=== PATIENT | female | born 1945 | race Caucasian/White ===

== ENCOUNTER 2016-09-22 01:30 | Emergency (ER) | payer OTHER, BC ==
--- NOTE | 2016-09-22 01:38 | PDOC ---
History of Present Illness - General Chief Complaint: Lightheaded Stated Complaint: VERTIGO Time Seen by Provider: 09/22/16 01:37 History Source: Patient Exam Limitations: No Limitations - History of Present Illness Initial Comments: 09/22/16 01:45 This is a 70-year-old female who comes in with her friend for evaluation of vertigo type symptoms. Patient said that begin approximately 4 hours ago. Patient said when she moves her head especially when she looks down she gets a spinning sensation. Patient has at her baseline some mild tinnitus but otherwise not a denies any additional or new tinnitus. Patient has some mild associated nausea with the vertigo but has not vomited. Patient denies any headache, neck stiffness fever or chills or any other complaints. PAST MEDICAL HISTORY: no significant history PAST SURGICAL HISTORY: no significant history FAMILY HISTORY: no pertinant history SOCIAL HISTORY: Pt lives with family and is employed. MEDICATIONS: reviewed ALLERGIES: As per nursing notes Review of Systems General: No fevers or chills, no weakness, no weight loss HEENT: No change in vision. No sore throat,. No ear pain CardioVascular: No chest pain or shortness of breath Respiratory:No cough, or wheezing. Gastrointestinal: no nausea, vomitting, diarrhea or constipation, No rectal bleeding Genitourinary: No dysuria, hematuria, or frequency Musculoskeletal: No joint or muscle pain or swelling Neurologic: No headache, vertigo, dizziness or loss of consciousness Psychiatric: nor depression Skin: No rashes or easy bruising Endocrine: no increased thirst or abnormal weight change Allergic: no skin or latex allergy All other systems reviewed and normal Exam: General: Well-nourished well-developed individual, no acute distress HEENT: Throat: Normal, tonsils normal, no erythema or exudate Neck: Supple, no meningeal signs, no lymphadenopathy Eyes::Pupils equal reactive and round, extraocular motion intact, there is no nystagmus Chest: Nontender to palpation Cardiac: S1-S2 normal, regular rate and rhythm, no murmurs rubs or gallops Respiratory: Lungs clear to auscultation bilateral Abdomen: Soft, nondistended, normal bowel sounds, nontender to palpation diffusely Extremities: Warm, dry, no cyanosis, clubbing, or edema Skin: No rashes Neuro: Alert and oriented x3, nonfocal exam, grossly intact, normal gait Psych: Normal mood and affect 09/22/16 02:48 Assessment and plan: This is a 62-year-old female who comes in complaining of vertigo type symptoms. Patient given meclizine and Zofran with improvement of her symptoms. Patient had a CAT scan that was negative for any acute pathology. Patient discharged home with prescription for meclizine and will follow-up with her primary care on Friday. Past History - Past Medical History Allergies/Adverse Reactions: Allergies Allergy/AdvReac Type Severity Reaction Status Date / Time Penicillins Allergy Intermediate Swelling Verified 11/11/11 14:34 Home Medications: Ambulatory Orders Meclizine HCl [Antivert -] 25 mg PO TID #21 tablet 09/22/16 Metronidazole [Metrogel] 55 gm TP DAILY 09/22/16 Anemia: No Asthma: No Cancer: Yes Cardiac Disorders: No CVA: No COPD: No CHF: No Dementia: No Diabetes: No GI Disorders: No Disorders: No HTN: No Hypercholesterolemia: No Liver Disease: No Seizures: No Thyroid Disease: No - Surgical History Abdominal Surgery: No Appendectomy: No Cardiac Surgery: No Cholecystectomy: No Lung Surgery: No Neurologic Surgery: No Orthopedic Surgery: No - Psycho/Social/Smoking Cessation Hx Smoking History: Never smoked Have you smoked in the past 12 months: No Hx Alcohol Use: Yes Drug/Substance Use Hx: No Substance Use Type: Alcohol Hx Substance Use Treatment: No *DC/Admit/Observation/Transfer Diagnosis at time of Disposition: Vertigo - Discharge Dispostion Disposition: HOME Condition at time of disposition: Stable Admit: No - Prescriptions Prescriptions: Meclizine HCl [Antivert -] 25 mg PO TID #21 tablet - Patient Instructions Printed Discharge Instructions: DI for Vertigo Additional Instructions: Take meclizine 1 tablet as often as every 6-8 hours as needed for the vertigo. Return to the emergency department immediately with ANY new, persistent or worsening symptoms. Continue any medications as previously prescribed by your physician. You should follow up with your primary doctor as soon as possible regarding today's emergency department visit. . Please make sure your doctor reviews the results of your emergency evaluation. Thank you for coming to the Emergency Department today for your care. It was a pleasure to see you today. Please note that your evaluation is INCOMPLETE until you follow-up with your doctor.
[2016-09-22] MEDS ORDERED: MECLIZINE HCL 25 MG TABLET (FP) PO ONE (01:45)
[2016-09-22 02:14] VITALS: BP 156/72; PULSE 70; TEMP 97.4; BMI 30.1
== END 2016-09-22 03:03 | disposition home or self-care (01) ==
LOC: FER 01:30
DX: R42 Dizziness and giddiness (principal)
CPT/HCPCS: 70450-TC; 99281-25

== ENCOUNTER 2016-09-29 13:45 | Observation (INO) | payer OTHER, BC ==
--- NOTE | 2016-09-29 13:53 | PDOC ---
History of Present Illness <Kathleen Cordoba - Last Filed: 09/29/16 17:11> - General History Source: Patient Exam Limitations: No Limitations - History of Present Illness Initial Comments: 09/29/16 14:36 70y M presents with L facial and arm tingling since approx 11am. The pt states that she woke up feeling fine, around 11, she was doin gsome cooking and felt a strane sensation on her L arm and about 1 hr after that it travelled to her L face. Pt denies any associated pain including headache, neck pain, back pain, vision changes, speech changes, focal weakness, chest pain/palpitations, n/v. No recent illnesses. Pt took 6 baby asa prior to arrival. PMD: Dr. Osmin Coe at [facility] a few datys ago pt did have an episode of pain in her L pinky, she went to her doctor who thought it might be a raynouds phenomnon <Ernst Glass - Last Filed: 09/29/16 18:32> - General Chief Complaint: Head/Neck problem Stated Complaint: LEFT FACE TINGLING, LEFT ARM TINGLING NUMBNESS Time Seen by Provider: 09/29/16 13:51 NIH Stroke Scale - Last Known Well Date/Time & Onset Date Last Known Well: 09/29/16 Time Last Known Well: 11:00 - Initial Evaluation Level of consciousness: Alert Ask patient the month and their age: Answers both correctly Ask patient to open & close eyes; make fist and let go: Obeys both correctly Best gaze (horizontal eye movement): Normal Visual field testing: No visual field loss Facial paresis (Show teeth/raise eyebrows/close eyes tight): Normal symmetrical movement Motor Function: Left Arm: Normal Motor Function: Right Arm: Normal (extends arm 90 (or 45) degrees for 10 seconds without drift Motor Function: Left Leg: Normal (extends leg 30 degrees for 5 seconds without drift) Motor Function: Right Leg: Normal (extends leg 30 degrees for 5 seconds without drift) Limb Ataxia: No ataxia Sensory(Use pinprick test arms,legs,trunk,face/side to side): Mild to moderate decrease in sensation Best language (Describe picture, name items, read sentences): No Aphasia Dysarthria (read several words): Normal articulation Extinction and Inattention: No abnormality - Total Score NIH Stroke Scale Score: 1 <Ernst Glass - Last Filed: 09/29/16 18:32> tPA Exclusion checklist 3-4.5h - Time Elapsed Date last known well: 09/29/16 Time last known well: 11:00 Elaspsed time: Day(s) and 7 Hour(s) and 30 Minutes - Thrombolytic Therapy Candidate Is patient eligible for thrombolytic therapy: No - Relative Exclusion Criteria 3-4.5 hr Stroke severity too mild: Yes - Ineligibility reason(s) Reasons No tPA given: Outside of window - delayed arrival, See reason(s) noted above <Ernst Glass - Last Filed: 09/29/16 18:32> Past History <Kathleen Cordoba - Last Filed: 09/29/16 17:11> - Past Medical History Anemia: No Asthma: No Cancer: Yes Cardiac Disorders: No CVA: No COPD: No CHF: No Dementia: No Diabetes: No GI Disorders: No Disorders: No HTN: No Hypercholesterolemia: No Liver Disease: No Seizures: No Thyroid Disease: No - Surgical History Abdominal Surgery: No Appendectomy: No Cardiac Surgery: No Cholecystectomy: No Lung Surgery: No Neurologic Surgery: No Orthopedic Surgery: No - Psycho/Social/Smoking Cessation Hx Anxiety: No Suicidal Ideation: No Smoking History: Never smoked Have you smoked in the past 12 months: No Hx Alcohol Use: Yes Drug/Substance Use Hx: No Substance Use Type: Alcohol Hx Substance Use Treatment: No <Ernst Glass - Last Filed: 09/29/16 18:32> - Past Medical History Allergies/Adverse Reactions: Allergies Allergy/AdvReac Type Severity Reaction Status Date / Time Penicillins Allergy Intermediate Swelling Verified 11/11/11 14:34 Home Medications: Ambulatory Orders Metronidazole [Metrogel] 55 gm TP DAILY 09/22/16 Aspirin [ASA -] 454 mg PO ONCE 09/29/16 Meclizine HCl [Antivert -] 25 mg PO TID PRN 09/29/16 Review of Systems - Review of Systems Able to Perform ROS?: Yes Comments:: 09/29/16 14:42 GENERAL: The patient is awake, alert, and fully oriented, Nontoxic - in no acute distress. HEAD: Normocephalic, atraumatic. EYES: extraocular movements intact, sclera anicteric, conjunctiva clear. ENT: Normal voice, Moist mucous membranes. NECK: Normal range of motion, supple LUNGS: Breath sounds equal, clear to auscultation bilaterally. No wheezes, no rhonchi, no rales. HEART: Regular rate and rhythm, normal S1 and S2 without murmur, rub or gallop. ABDOMEN: Soft, nontender, normoactive bowel sounds. No guarding, no rebound. . No CVA tenderness EXTREMITIES: Normal range of motion, no edema. No clubbing or cyanosis. No cords, erythema, or tenderness. NEUROLOGICAL: +facial/arm numbnes/tingling No facial assymetry, Normal speech, PSYCH: Normal mood, normal affect. SKIN: Warm, Dry, normal turgor, <Ernst Glass - Last Filed: 09/29/16 18:32> *Physical Exam - Vital Signs Last Vital Signs Temp Pulse Resp BP Pulse Ox 99.0 F 63 15 115/62 99 09/29/16 13:50 09/29/16 15:15 09/29/16 15:15 09/29/16 15:15 09/29/16 14:59 <Kathleen Cordoba - Last Filed: 09/29/16 17:11> - Physical Exam Comments: 09/29/16 14:42 GENERAL: The patient is awake, alert, and fully oriented, Nontoxic - in no acute distress. HEAD: Normocephalic, atraumatic. EYES: extraocular movements intact, sclera anicteric, conjunctiva clear. ENT: Normal voice, Moist mucous membranes. NECK: Normal range of motion, supple LUNGS: Breath sounds equal, clear to auscultation bilaterally. No wheezes, no rhonchi, no rales. HEART: Regular rate and rhythm, normal S1 and S2 without murmur, rub or gallop. ABDOMEN: Soft, nontender, normoactive bowel sounds. No guarding, no rebound. . No CVA tenderness EXTREMITIES: Normal range of motion, no edema. L fingers slightly cooler to touch than R fingers PSYCH: Normal mood, normal affect. SKIN: Warm, Dry, normal turgor, NEURO: Mental status: The patient is oriented x3. Cranial nerves: Cranial nerves II through XII are intact Motor: The upper extremities are 5 over 5 grossly. The lower extremities are 5 over 5 grossly. Negative pronator drift Sensation: Slightly diminished sensation in the left face, left arm Cerebellar: Pxzkis-zuvkpi-oxkb is normal in both upper extremities. Heel-knee- hanson is normal in both lower extremities. rapid alternating movements are normal. Gait: Normal. <Ernst Glass - Last Filed: 09/29/16 18:32> Heart Score/ECG Review - ECG Impressions Comment:: 09/29/16 14:43 Twelve-lead EKG was performed and reviewed by me. There is normal sinus rhythm with a normal rate. Rate of 78 The axis is normal. The intervals are normal. There is normal R wave progression There are no ST or T wave abnormalities. <Ernst Glass - Last Filed: 09/29/16 18:32> ED Treatment Course - LABORATORY CBC & Chemistry Diagram: 09/29/16 14:30 09/29/16 14:30 - ADDITIONAL ORDERS Additional order review: Laboratory Results 09/29/16 09/29/16 09/29/16 14:45 14:30 14:30 INR 0.91 L Sodium 136 Potassium 4.2 Chloride 102 Carbon Dioxide 24 Anion Gap 10 BUN 16 Creatinine 0.8 Creat Clearance w eGFR > 60 Random Glucose 112 H Calcium 9.1 Total Bilirubin 1.3 H AST 29 ALT 33 Alkaline Phosphatase 48 Creatine Kinase 110 Troponin I < 0.03 Total Protein 6.5 Albumin 4.1 Urine Color Yellow Urine Appearance Clear Urine pH 6.5 Ur Specific Sumner <= 1.005 Urine Protein Negative Urine Glucose (UA) Negative Urine Ketones Negative Urine Blood Trace-lysed Urine Nitrite Negative Urine Bilirubin Negative Urine Urobilinogen 0.2 Ur Leukocyte Esterase 1+ H Urine RBC 0-3 Urine WBC 5-8 Ur Epithelial Cells 3-5 09/29/16 14:30 RBC 4.73 MCV 88.4 MCHC 33.1 RDW 12.5 MPV 9.6 Neutrophils % 69.1 Lymphocytes % 20.6 Monocytes % 8.0 Eosinophils % 1.4 Basophils % 0.9 <Kathleen Cordoba - Last Filed: 09/29/16 17:11> - LABORATORY CBC & Chemistry Diagram: 09/29/16 14:30 09/29/16 14:30 <Ernst Glass - Last Filed: 09/29/16 18:32> Medical Decision Making - Medical Decision Making 09/29/16 17:[address] Jesse Rg via answering service at [phone], awaiting call back. <Kathleen Cordoba - Last Filed: 09/29/16 17:11> - Medical Decision Making 09/29/16 14:45 70y F hx of vertigom presents with L arm tingling since approx 11am, and facial tingling since approx 1:30pm, n oassociated weakness, pain, or other sympoms. on exam pt has slightly demnished sensation in L face and arm. otheriwes intact neuro exam NIHSS is 1 not TPA canddiate as time of onset >3 hrs and symptoms are fairly mild. will obtain CT head, blood work, ekg to r/o arrythmia pt s/p ASA (self admisntered 6 baby asa prior to arrival) 09/29/16 17:08 ct negative for acute pathology labs unremnarkable bp improved from arrival will discuss with neuro but anticipate observation for possible MRI awaiting call back from neurology 09/29/16 18:21 case dw medicine agreed with admission/obervation will admit to tele under dr. montejo service dw dr rg - would consider CTA to r/o embolic event 09/29/16 18:30 Case discussed in detail with admitting physician including history, physical exam and ancillary studies. Admitting physician has assumed care for the patient, will follow all pending diagnostics and will complete the evaluation and treatment. <Ernst Glass - Last Filed: 09/29/16 18:32> *DC/Admit/Observation/Transfer <Kathleen Cordoba - Last Filed: 09/29/16 17:11> - Discharge Dispostion Admit: Yes <Ernst Glass - Last Filed: 09/29/16 18:32> Diagnosis at time of Disposition: Left upper extremity numbness - Discharge Dispostion Condition at time of disposition: Guarded
[2016-09-29 14:01] VITALS: BMI 30.1
[2016-09-29 14:54] LABS: PH,URINE 6.5 (4.5-8); URINE APPEARANCE Clear; URINE BILIRUBIN Negative (NEGATIVE); URINE BLOOD Trace-lysed (NEGATIVE); URINE GLUCOSE (UA) Negative (NEGATIVE); URINE KETONE Negative (NEGATIVE); URINE NITRITE Negative (NEGATIVE); URINE PROTEIN Negative (NEGATIVE); URINE UROBILINOGEN 0.2 (0.2-1.0)
[2016-09-29 14:56] LABS: BASOPHIL 0.9 % (0-2.0); EOSINOPHIL 1.4 % (0-4.5); MCH 29.3 pg (25.7-33.7); MCHC 33.1 g/dl (32.0-36.0); MEAN CELL VOLUME 88.4 fl (80-96); MEAN PLT VOLUME 9.6 fl (7.5-11.1); NEUTROPHILS 69.1 % (42.8-82.8); PLATELET COUNT 255 K/MM3 (134-434); RDW 12.5 % (11.6-15.6); WHITE BLOOD COUNT 6.3 K/mm3 (4.0-10.8)
[2016-09-29 14:58] LABS: URINE COLOR YELLOW; URINE LEUK ESTERASE 1+ (NEGATIVE)
[2016-09-29 15:09] LABS: ALBUMIN 4.1 g/dl (3.5-5.0); ALK PHOS 48 U/L (32-92); ANION GAP 10 (8-16); BILIRUBIN,TOTAL 1.3 mg/dl (0.2-1.0); CALCIUM 9.1 mg/dl (8.4-10.2); CO2 24 mmol/L (22-28); CREATININE 0.8 mg/dl (0.6-1.3); GLUCOSE,RANDOM 112 mg/dl (74-106); SGOT/AST 29 U/L (10-42); SGPT/ALT 33 U/L (10-40); TOT PROT 6.5 g/dl (6.4-8.3)
[2016-09-29 15:13] LABS: CPK 110 IU/L (26-192)
[2016-09-29 15:17] LABS: INR 0.91 (0.82-1.09); PROTHROMBIN TIME (PATIENT) 10.2 SEC (10.2-13.0)
[2016-09-29 15:19] LABS: TROPONIN I < 0.03 ng/ml (0.00-0.05)
[2016-09-29 15:25] LABS: URINE RBC 0-3 /hpf (0-3)
--- NOTE | 2016-09-29 18:48 | CONSULT ---
Consult - text type - Consultation Consultation Note: NEUROLOGY CONSULTATION is greatly appreciated: This 70 yo RH div. 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 H/O episodic vertigo (3 episodes in the past) with chronic tinnitus and hearing loss (B/L) for which she takes meclizine PRN. 2 recent bouts of pounding palpitations evaluated at [facility]. Her student activities director is Chun Landry. Primary is Osmin Coe 2 weeks ago developed cellulitis in left arm attributed to [place] spines, treated with antibiotics. On Friday she had painful numbness in the left pinky x [address] Coe felt it could be Raynaud's Phenomenon. Yesterday and today has had a "strange feeling" in the left arm which has waxed and waned. Today,transient tingling left face CT of the head (reviewed): Normal study. TAISHA: No carotid or subclavian bruits, Cor Reg. No axillary masses. Left hand is cooler than the right. pules normal. NEURO: MS/Speech: Normal CN II-XII: normal Motor: No drift. Normal strength, tone, bulk and reflexes. Toes downgoing Coord: No FTN dystaxia Sensory: Normal. Romberg neg Gait:Normal including tandem, heal and toe. IMP: Normal neurological exam. Doubt a primary neurological etiology. Suspect a vascular etiology with hypoperfusion to the left arm and possible embolic event on Friday. SUGGEST: Admit for evaluation including MR or CT angio of the aortic arch and left subclavian system. Cardiology and vascular Surgery consultation. Telemetry and/or halter to r/o arrhythmia. TSH, T4, ESR, CRP Thank you very much, Jesse Ayoub MD
[2016-09-29] MEDS ORDERED: SODIUM CHLORIDE 1,000 ML IV SCH (23:45)
--- NOTE | 2016-09-29 23:51 | HP ---
CHIEF COMPLAINT: left arm and face parasthesia PCP: Osmin Coe, Cardio: Chun Landry HISTORY OF PRESENT ILLNESS: This is a 70 year old female who presented to the ED with parasthesia to left arm and left face earlier today. Pt reports an "odd sensation" that she is unable to describe. She denies tingling or prickling, but states her arm "just didn't feel right." When the sensation spread to her face she presented to the ED. She states that on Friday she had an episode where her left pinky went completely white "like a cadaver" and she lost all sensation. Color slowly returned with movement of hand and shaking of arm and she has had no recurrence since. 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 At present, on exam, the odd sensation in her left arm and face have resolved. ER course was notable for: (1) CT head without acute changes (2) CT angio of chest with normal aortic arch, major branches and subclavian artery Recent Travel: pt denies PAST MEDICAL HISTORY: R breast CA 2010 s/p tumor and LN resection, radiation and femara vertigo rosacea "arrhythmia" as per pt her criminal investigative agent reported it's "the best one to have" "minor valvular problem" PAST SURGICAL HISTORY: R breast CA resection Social History: Smoking: pt denies Alcohol: pt denies Drugs: pt denies Family History: mother age 85, Alzheimers father age 88, PNA after hip fracture half brother age 30, renal failure brother age 65, obesity HTN, DM 2 children alive and well Allergies Penicillins Allergy (Intermediate, Verified 11/11/11 14:34) Swelling HOME MEDICATIONS: 3 Medication Instructions Recorded Metronidazole [Metrogel] 55 gm TP DAILY 09/22/16 Meclizine HCl [Antivert -] 25 mg PO TID PRN 09/29/16 REVIEW OF SYSTEMS CONSTITUTIONAL: Absent: fever, chills, diaphoresis, generalized weakness, malaise, loss of appetite, weight change HEENT: Absent: rhinorrhea, nasal congestion, throat pain, throat swelling, difficulty swallowing, mouth swelling, ear pain, eye pain, visual changes CARDIOVASCULAR: Absent: chest pain, syncope, palpitations, irregular heart rate, lightheadedness , peripheral edema RESPIRATORY: Absent: cough, shortness of breath, dyspnea with exertion, orthopnea, wheezing, stridor, hemoptysis GASTROINTESTINAL: Absent: abdominal pain, abdominal distension, nausea, vomiting, diarrhea, constipation, melena, hematochezia GENITOURINARY: Absent: dysuria, frequency, urgency, hesitancy, hematuria, flank pain, genital pain MUSCULOSKELETAL: Absent: myalgia, arthralgia, joint swelling, back pain, neck pain SKIN: Absent: rash, itching, pallor HEMATOLOGIC/IMMUNOLOGIC: Absent: easy bleeding, easy bruising, lymphadenopathy, frequent infections ENDOCRINE: Absent: unexplained weight gain, unexplained weight loss, heat intolerance, cold intolerance NEUROLOGIC: Present: paresthesias Absent: headache, focal weakness, dizziness, unsteady gait, seizure, mental status changes, bladder or bowel incontinence PSYCHIATRIC: Absent: anxiety, depression, suicidal or homicidal ideation, hallucinations. PHYSICAL EXAMINATION Vital Signs - 24 hr 3 09/29/16 09/29/16 09/29/16 09/29/16 09/29/16 13:50 14:59 15:15 17:10 19:59 Temperature 99.0 F 98.3 F Pulse Rate 90 74 Pulse Rate [ 62 63 66 Apical] Respiratory 16 15 15 15 15 Rate Blood Pressure 150/78 123/53 Blood Pressure 122/58 115/62 148/76 [Left Arm] O2 Sat by Pulse 100 99 Oximetry (%) GENERAL: Awake, alert, and fully oriented, in no acute distress. HEAD: Normal with no signs of trauma. EYES: Pupils equal, round and reactive to light, extraocular movements intact, sclera anicteric, conjunctiva clear. No lid lag. EARS, NOSE, THROAT: Ears normal, nares patent, oropharynx clear without exudates. Moist mucous membranes. NECK: Normal range of motion, supple without lymphadenopathy, JVD, or masses. LUNGS: Breath sounds equal, clear to auscultation bilaterally. No wheezes, and no crackles. No accessory muscle use. HEART: Regular rate and rhythm, normal S1 and S2 without murmur, rub or gallop. ABDOMEN: Soft, nontender, not distended, normoactive bowel sounds, no guarding, no rebound, no masses. No hepatomegaly or splenomegaly. MUSCULOSKELETAL: Normal range of motion at all joints. No bony deformities or tenderness. No CVA tenderness. UPPER EXTREMITIES: 2+ pulses, warm, well-perfused. No cyanosis. No clubbing. No peripheral edema. LOWER EXTREMITIES: 2+ pulses, warm, well-perfused. No calf tenderness. No peripheral edema. NEUROLOGICAL: Cranial nerves II-XII intact. Normal speech. Normal gait. PSYCHIATRIC: Cooperative. Good eye contact. Appropriate mood and affect. SKIN: Warm, dry, normal turgor, no rashes or lesions noted, normal capillary refill. Laboratory Results - last 24 hr 3 09/29/16 09/29/16 09/29/16 14:30 14:30 14:30 WBC 6.3 RBC 4.73 Hgb 13.8 Hct 41.8 MCV 88.4 MCH 29.3 MCHC 33.1 RDW 12.5 Plt Count 255 MPV 9.6 Neutrophils % 69.1 Lymphocytes % 20.6 Monocytes % 8.0 Eosinophils % 1.4 Basophils % 0.9 INR 0.91 L Sodium 136 Potassium 4.2 Chloride 102 Carbon Dioxide 24 Anion Gap 10 BUN 16 Creatinine 0.8 Creat Clearance w eGFR > 60 Random Glucose 112 H Calcium 9.1 Total Bilirubin 1.3 H AST 29 ALT 33 Alkaline Phosphatase 48 Creatine Kinase 110 Troponin I < 0.03 Total Protein 6.5 Albumin 4.1 Urine Color Urine Appearance Urine pH Ur Specific [place] Urine Protein Urine Glucose (UA) Urine Ketones Urine Blood Urine Nitrite Urine Bilirubin Urine Urobilinogen Ur Leukocyte Esterase Urine RBC Urine WBC Ur Epithelial Cells Blood Type AB POSITIVE Antibody Screen Negative 3 Urine Color Yellow 09/29/16 14:45 Urine Appearance Clear 09/29/16 14:45 Urine pH 6.5 (4.5-8) 09/29/16 14:45 Ur Specific [place] <= 1.005 (1.005-1.025) 09/29/16 14:45 Urine Protein Negative (NEGATIVE) 09/29/16 14:45 Urine Glucose (UA) Negative (NEGATIVE) 09/29/16 14:45 Urine Ketones Negative (NEGATIVE) 09/29/16 14:45 Urine Blood Trace-lysed (NEGATIVE) 09/29/16 14:45 Urine Nitrite Negative (NEGATIVE) 09/29/16 14:45 Urine Bilirubin Negative (NEGATIVE) 09/29/16 14:45 Ur Leukocyte Esterase 1+ (NEGATIVE) H 09/29/16 14:45 Urine RBC 0-3 /hpf (0-3) 09/29/16 14:45 Urine WBC 5-8 (3-5) 09/29/16 14:45 Ur Epithelial Cells 3-5 /HPF 09/29/16 14:45 Radiology Results: HEAD CT WITHOUT CONTRAST Cranial CT without contrast Clinical information: left face / arm tingling, evaluate for CVA No intracranial hemorrhage is seen. There is no discrete infarct within the limitations of CT. No gross mass lesion is noted. There is no extra-axial fluid collection. The ventricles and cisterns appear unremarkable. A mildly prominent retrocerebellar cistern is noted consistent with normal variation. No calvarial defect is seen. Impression: No CT evidence of acute intracranial pathology. There has been no definite interval change in comparison to a prior CT study of 09/22/2016. Reported By: Hiram Triana MD 09/29/16 1450 EXAM: CT Angiogram Chest w IMAGES: [id number] EXAM DATE AND TIME: 2016-09-29 20:39: 45.0 THIS IS A PRELIMINARY REPORT FROM IMAGING FOOD AND BEVERAGE SERVICE MANAGER REASON FOR EXAM: Pulmonary embolus. Elevated D-dimer. COMPARISON: None. TECHNIQUE: CT Angiogram Chest with I.V. contrast: Thin cut axial images were obtained during the administration of non-ionic iodinated IV contrast. Coronal and sagittal reformatted images were also generated. 90 cc of Omnipaque. FINDINGS: The soft tissues of the lower neck appear unremarkable. The thyroid glands are normal in size and contour. The tracheobronchial airways are patent. There is no evidence of axillary or mediastinal adenopathy. The lungs are clear without evidence of infiltrate, pleural effusion or pulmonary nodule. The heart size is normal. There are no coronary artery calcifications. The pulmonary arteries are patent to their fifth and sixth generation segmental and subsegmental branches, without evidence of filling defect or pulmonary embolus. The thoracic aorta ascending, arch and descending segments, great vessels arising from the aortic arch, and upper abdominal aorta are normal in diameter and wall thickness, without evidence of aneurysm or dissection. The left subclavian axillary arteries are patent. There are no atherosclerotic calcifications in the thoracic aorta. Osseous structures exhibit grossly normal mineralization without evidence of lytic or sclerotic lesions. The thoracic vertebral body heights and alignments are well maintained. Upper abdominal organs appear normal. IMPRESSION: Unremarkable contrast enhanced chest CT. No evidence of pulmonary embolus, infiltrate, pleural effusion or pulmonary nodule. . THIS DOCUMENT HAS BEEN ELECTRONICALLY SIGNED Sher Mclean MD. 09/29/2016 21: 52 EST ECG NSR with sinus arrhytmia, rate 78 QTC 465 low voltage QRS no acute ST/T changes ASSESSMENT/PLAN: 70yF with PMH BrCA, vertigo, rosacea presented to the ED for parasthesia Left arm and face. She has been admitted for observation. Parasthesia Left arm - CTA chest/major vessels/subclavian axillary arteries patent (discussed CTA of arm with residential appliance repair technician but due to timing of IV contrast administration and imaging only able to obtain CTA chest OR upper extremity.) - Arterial doppler in AM, would defer further IV contrast at this time - Neurology consult appreciated. - will monitor tele x 24 h, no report of palpitations at present vertigo - asymptomatic at present Rosacea - cont metrogel DVT PPX - deferred as expected LOS <48h FEN - NS @ 100cc/hr x 1 liter post IV contrast - BMP in am - regular diet as tolerated Dispo: Pt currently requires inpatient monitoring of her emergent condition. Visit type - Emergency Visit Emergency Visit: Yes ED Registration Date: 09/29/16 Care time: The patient presented to the Emergency Department on the above date and was hospitalized for further evaluation of their emergent condition. - New Patient This patient is new to me today: Yes Date on this admission: 09/29/16 - Critical Care Critical Care patient: No
[2016-09-30] MEDS ORDERED: ASPIRIN 81 MG CHEWABLE TABLETS PO SCH ×2 (08:45→10:00)
[2016-09-30 08:57] LABS: ANION GAP 7 (8-16); CALCIUM 8.7 mg/dl (8.4-10.2); CO2 22 mmol/L (22-28); CREATININE 0.7 mg/dl (0.6-1.3); GLUCOSE,RANDOM 97 mg/dl (74-106); PHOSPHOROUS 3.6 mg/dl (2.5-4.6)
[2016-09-30 09:05] LABS: BASOPHIL 1.2 % (0-2.0); MCH 29.9 pg (25.7-33.7); MEAN PLT VOLUME 9.7 fl (7.5-11.1); NEUTROPHILS 55.9 % (42.8-82.8); PLATELET COUNT 252 K/MM3 (134-434); RDW 12.4 % (11.6-15.6)
--- NOTE | 2016-09-30 09:05 | DS ---
Physical Exam: SUBJECTIVE: Patient seen and examined OBJECTIVE: patient is a 70 year old female who presented to the ED with parasthesia to left arm and left face earlier today. Pt reports an "odd sensation" that she is unable to describe. She denies tingling or prickling, but states her arm "just didn't feel right." When the sensation spread to her face she presented to the ED. She states that on Friday she had an episode where her left pinky went completely white "like a cadaver" and she lost all sensation. Color slowly returned with movement of hand and shaking of arm and she has had no recurrence since. 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 At present, on exam, the odd sensation in her left arm and face have resolved. ER course was notable for: (1) CT head without acute changes (2) CT angio of chest with normal aortic arch, major branches and subclavian artery Vital Signs Period Temp Pulse Resp BP Sys/Thomas Pulse Ox Last 24 Hr 98.3 F 66 15-20 114/50 100 PHYSICAL EXAM GENERAL: The patient is awake, alert, and fully oriented, in no acute distress. HEAD: Normal with no signs of trauma. EYES: PERRL, extraocular movements intact, sclera anicteric, conjunctiva clear. ENT: Ears normal, nares patent, oropharynx clear without exudates, moist mucous membranes. NECK: Trachea midline, full range of motion, supple. LUNGS: Breath sounds equal, clear to auscultation bilaterally, no wheezes, no crackles, no accessory muscle use. HEART: Regular rate and rhythm, S1, S2 without murmur, rub or gallop. ABDOMEN: Soft, nontender, nondistended, normoactive bowel sounds, no guarding, no rebound, no hepatosplenomegaly, no masses. EXTREMITIES: 2+ pulses, warm, well-perfused, no edema. NEUROLOGICAL: Cranial nerves II through XII grossly intact. Normal speech, gait not observed. PSYCH: Normal mood, normal affect. SKIN: Warm, dry, normal turgor, no rashes or lesions noted. LABS CBC WBC 6.0 K/mm3 (4.0-10.8) 09/30/16 07:00 RBC 4.34 M/mm3 (3.60-5.2) 09/30/16 07:00 Hgb 13.0 GM/dl (10.7-15.3) 09/30/16 07:00 Hct 38.2 % (32.4-45.2) 09/30/16 07:00 MCV 88.0 fl (80-96) 09/30/16 07:00 MCH 29.9 pg (25.7-33.7) 09/30/16 07:00 MCHC 34.0 g/dl (32.0-36.0) 09/30/16 07:00 RDW 12.4 % (11.6-15.6) 09/30/16 07:00 Plt Count 252 K/MM3 (134-434) 09/30/16 07:00 MPV 9.7 fl (7.5-11.1) 09/30/16 07:00 Neutrophils % 55.9 % (42.8-82.8) 09/30/16 07:00 Lymphocytes % 32.3 % (8-40) D 09/30/16 07:00 Monocytes % 8.6 % (3.8-10.2) 09/30/16 07:00 Eosinophils % 2.0 % (0-4.5) 09/30/16 07:00 Basophils % 1.2 % (0-2.0) 09/30/16 07:00 CMP Sodium 137 mmol/L (136-145) 09/30/16 07:00 Potassium 3.7 mmol/L (3.5-5.1) 09/30/16 07:00 Chloride 108 mmol/L (98-107) H 09/30/16 07:00 Carbon Dioxide 22 mmol/L (22-28) 09/30/16 07:00 Anion Gap 7 (8-16) L 09/30/16 07:00 BUN 10 mg/dl (7-18) D 09/30/16 07:00 Creatinine 0.7 mg/dl (0.6-1.3) 09/30/16 07:00 Creat Clearance w eGFR > 60 (>60) 09/29/16 14:30 Random Glucose 97 mg/dl (74-106) 09/30/16 07:00 Calcium 8.7 mg/dl (8.4-10.2) 09/30/16 07:00 Phosphorus 3.6 mg/dl (2.5-4.6) 09/30/16 07:00 Magnesium 2.0 mg/dL (1.8-2.4) 09/30/16 07:00 Total Bilirubin 1.3 mg/dl (0.2-1.0) H 09/29/16 14:30 AST 29 U/L (10-42) 09/29/16 14:30 ALT 33 U/L (10-40) 09/29/16 14:30 Alkaline Phosphatase 48 U/L (32-92) 09/29/16 14:30 Creatine Kinase 110 IU/L (26-192) 09/29/16 14:30 Troponin I < 0.03 ng/ml (0.00-0.05) 09/29/16 14:30 Total Protein 6.5 g/dl (6.4-8.3) 09/29/16 14:30 Albumin 4.1 g/dl (3.5-5.0) 09/29/16 14:[address] WITHOUT CONTRAST Cranial CT without contrast Clinical information: left face / arm tingling, evaluate for CVA No intracranial hemorrhage is seen. There is no discrete infarct within the limitations of CT. No gross mass lesion is noted. There is no extra-axial fluid collection. The ventricles and cisterns appear unremarkable. A mildly prominent retrocerebellar cistern is noted consistent with normal variation. No calvarial defect is seen. Impression: No CT evidence of acute intracranial pathology. There has been no definite interval change in comparison to a prior CT study of 09/22/2016. Reported By: Hiram Triana MD 09/29/16 1450 EXAM: CT Angiogram Chest w IMAGES: [id number] EXAM DATE AND TIME: 2016-09-29 20:39: 45.0 THIS IS A PRELIMINARY REPORT FROM IMAGING SURVEY STATISTICIAN REASON FOR EXAM: Pulmonary embolus. Elevated D-dimer. COMPARISON: None. TECHNIQUE: CT Angiogram Chest with I.V. contrast: Thin cut axial images were obtained during the administration of non-ionic iodinated IV contrast. Coronal and sagittal reformatted images were also generated. 90 cc of Omnipaque. FINDINGS: The soft tissues of the lower neck appear unremarkable. The thyroid glands are normal in size and contour. The tracheobronchial airways are patent. There is no evidence of axillary or mediastinal adenopathy. The lungs are clear without evidence of infiltrate, pleural effusion or pulmonary nodule. The heart size is normal. There are no coronary artery calcifications. The pulmonary arteries are patent to their fifth and sixth generation segmental and subsegmental branches, without evidence of filling defect or pulmonary embolus. The thoracic aorta ascending, arch and descending segments, great vessels arising from the aortic arch, and upper abdominal aorta are normal in diameter and wall thickness, without evidence of aneurysm or dissection. The left subclavian axillary arteries are patent. There are no atherosclerotic calcifications in the thoracic aorta. Osseous structures exhibit grossly normal mineralization without evidence of lytic or sclerotic lesions. The thoracic vertebral body heights and alignments are well maintained. Upper abdominal organs appear normal. IMPRESSION: Unremarkable contrast enhanced chest CT. No evidence of pulmonary embolus, infiltrate, pleural effusion or pulmonary nodule. . THIS DOCUMENT HAS BEEN ELECTRONICALLY SIGNED Sher Mclean MD. 09/29/2016 21: 52 EST ECG NSR with sinus arrhytmia, rate 78 QTC 465 low voltage QRS no acute ST/T changes HOSPITAL COURSE: 70yF with PMH BrCA, vertigo, rosacea presented to the ED for parasthesia Left arm and face. She has been admitted for observation. Parasthesia Left arm - CTA chest/major vessels/subclavian axillary arteries patent (discussed CTA of arm with net technical architect but due to timing of IV contrast administration and imaging only able to obtain CTA chest OR upper extremity.) - Arterial doppler in AM, would defer further IV contrast at this time - Neurology consult appreciated. - will monitor tele x 24 h, no report of palpitations at present vertigo - asymptomatic at present Rosacea - cont metrogel Date of Admission:09/29/16 Date of Discharge: 09/30/16 Minutes to complete discharge: 45 Discharge Summary Reason For Visit: R/O STROKE Current Active Problems Arm numbness left (Acute) Condition: Good - Instructions Referrals: Osmin Coe [Primary Care Provider] - - Home Medications Comprehensive Discharge Medication List: Ambulatory Orders Metronidazole [Metrogel] 55 gm TP DAILY 09/22/16 Aspirin [ASA -] 454 mg PO ONCE 09/29/16 Meclizine HCl [Antivert -] 25 mg PO TID PRN 09/29/16
[2016-09-30] MEDS ORDERED: METRONIDAZOLE TP SCH (10:00)
--- NOTE | 2016-09-30 10:15 | EKG ---
Test Reason : Blood Pressure : / mmHG Vent. Rate : 078 BPM Atrial Rate : 078 BPM P-R Int : 134 ms QRS Dur : 082 ms QT Int : 408 ms P-R-T Axes : 076 040 050 degrees QTc Int : 465 ms NORMAL SINUS RHYTHM WITH SINUS ARRHYTHMIA BORDERLINE ECG NO PREVIOUS ECGS AVAILABLE Confirmed by JADE FRY MD ([id number]) on 09/30/2016 10:14:52 AM Referred By: LEATHA WESTBROOK Confirmed By:JADE FRY MD
[2016-09-30 14:39] VITALS: BP 126/55; PULSE 66; TEMP 98.7
== END 2016-09-30 19:10 | disposition home or self-care (01) ==
LOC: FER 13:45 → FM/S 19:59
PROVIDERS: ADMIT Internal Medicine; ATTEND Nurse Practitioner Family
PROC: 3E0337Z Introduction of Electrolytic and Water Balance Substance into Peripheral Vein, Percutaneous Approach (ICD-10-PCS; principal; 2016-09-29)
DX: R20.2 Paresthesia of skin (principal); R20.0 Anesthesia of skin; Z85.3 Personal history of malignant neoplasm of breast; Z88.0 Allergy status to penicillin; Z79.82 Long term (current) use of aspirin; L71.9 Rosacea, unspecified
CPT/HCPCS: 36415; 70450-TC; 71010-TC; 71275-TC; 73225; 80048; 80053; 81003; 81015; 83735; 84100; 84484; 85025; 85610; 86850; 86900; 86901; 93005; 93880-TC; 93930; 99285-25; G0378